=== PATIENT | male | born 1990 | race Caucasian/White ===

== ENCOUNTER 2017-07-23 20:25 | Emergency (ER) | payer MEDICAID ==
[~2017-07-23] VITALS: Ht 180.3 cm; Wt 86.2 kg
[2017-07-23 21:19] VITALS: BP_SYST 145
[2017-07-23] MEDS ORDERED: ONDANSETRON HCL 4 MG/2 ML VIAL IVP ONE (21:30)
[2017-07-23] MEDS ORDERED: MORPHINE 2 MG/ML INJ. SYRINGE IVP ONE (21:30)
[2017-07-23] MEDS ORDERED: NACL 0.9% 1,000 ML IV ONE (21:30)
--- NOTE | 2017-07-23 21:30 | NUR ---
Placed in room 08 . Placed on cardroom plastic card grader, blood pressure machine and pulse oximeter. To gown for exam. Side rails up. Report given to YOKO Huddleston.
--- NOTE | 2017-07-23 21:30 | NUR ---
Patient AAO x4, sitting in bed, c/o right lower quadrant abd pain 6/10 intermittent x 2 days, worsened today. C/O nausea and "metallic taste" in mouth. Tenderness to RLQ on palpation. No acute distress noted. Will continue to monitor.
[2017-07-23 21:41] LABS: BASOPHILS % (AUTO) 0.4 % (0.0-2.0); EOSINOPHILS # (AUTO) 0.1 K/uL (0.0-0.4); EOSINOPHILS % (AUTO) 0.6 % (0.0-4.0); HEMATOCRIT 48.5 % (36-54); HEMOGLOBIN 16.4 g/dL (14.0-18.0); LYMPHOCYTES # (AUTO) 2.2 K/uL (1.0-5.5); LYMPHOCYTES % (AUTO) 19.5 % (20.5-51.5); MEAN CORPUSCULAR HEMOGLOBIN 31 pg (27-31); MEAN CORPUSCULAR HGB CONC 34 % (32-36); MEAN CORPUSCULAR VOLUME 91 fL (79.0-98.0); MONOCYTES # (AUTO) 0.7 K/uL (0.0-1.0); MONOCYTES % (AUTO) 6.3 % (1.7-9.3); NEUTROPHILS # (AUTO) 8.5 K/uL (1.8-7.7); NEUTROPHILS % (AUTO) 73.2 % (40.0-70.0); PLATELET COUNT (AUTO) 202 K/uL (130-430); RED BLOOD CELL COUNT(AUTO) 5.33 MIL/uL (4.2-6.2); WHITE BLOOD COUNT (AUTO) 11.5 K/uL (4.8-10.8)
--- NOTE | 2017-07-23 22:00 | NUR ---
# 20 gauge angiocath placed to L AC. Use of asceptic technique. Opsite placed over site. Blood return noted. Flushed with 10 cc of normal saline. No evidence of infiltration noted. Patient tolerated well.
[2017-07-23 22:02] LABS: CALCIUM 9.8 mg/dL (8.4-11.0); POTASSIUM 4.4 mmol/L (3.5-5.1)
[2017-07-23] MEDS ORDERED: IOHEXOL 100 ML IV ONE (22:03)
[2017-07-23 22:07] LABS: ALBUMIN 4.8 g/dL (3.4-4.8); TOTAL BILIRUBIN 0.5 mg/dL (0.0-1.0)
--- NOTE | 2017-07-23 22:10 | NUR ---
KARLO Gama at bedside examining patient.
--- NOTE | 2017-07-23 22:15 | NUR ---
Patient to CT via gurney with Zoyi.
[2017-07-23 22:21] LABS: BILIRUBIN,URINE NEGATIVE (NEGATIVE); BLOOD, URINE NEGATIVE (NEGATIVE); CLARITY/URINE CLEAR (CLEAR); COLOR,URINE YELLOW (YELLOW); GLUCOSE,URINE NEGATIVE (NEGATIVE); KETONES,URINE NEGATIVE (NEGATIVE); LEUKOCYTE ESTERASE ,URINE NEGATIVE (NEGATIVE); NITRITE, URINE NEGATIVE (NEGATIVE); PROTEIN URINE NEGATIVE (NEGATIVE); UROBILINOGEN,URINE 0.2 (0.2-1.0)
--- NOTE | 2017-07-23 22:31 | NUR ---
Patient returned to room from radiology.
[2017-07-23 23:33] VITALS: BP_SYST 125
--- NOTE | 2017-07-23 23:33 | NUR ---
Patient given written and verbal discharge instructions and verbalizes understanding. ER MD discussed with patient the results and treatment provided. Patient in stable condition. ID arm band removed. No Rx given. Patient educated on pain management and to follow up with PMD. Pain Scale 0/10. Opportunity for questions provided and answered.
== END 2017-07-23 23:33 | disposition home or self-care (01) ==
LOC: SED 20:25
DX: K52.9 Noninfective gastroenteritis and colitis, unspecified (principal)
CPT/HCPCS: 36415; 74177; 80053; 81003; 83690; 85025; 96361; 96374; 96375; 99285; J2270; J2405; J7030; Q9967